=== PATIENT | female | born 1955 | race African-American/Black ===

== ENCOUNTER 2017-10-21 10:18 | Inpatient (IN) | payer OTHER ==
[2017-10-21 10:42] VITALS: BMI 17.6
--- NOTE | 2017-10-21 13:57 | HP ---
CIWA Score - CIWA Score Nausea/Vomitin-No Nausea/No Vomiting Muscle Tremors: 4-Moderate,w/Arms Extend Anxiety: 4-Mod. Anxious/Guarded Agitation: 3 Paroxysmal Sweats: 1-Minimal Palms Moist Orientation: 0-Oriented Tacttile Disturbances: 0-None Auditory Disturbances: 0-None Visual Disturbances: 0-None Headache: 0-None Present CIWA-Ar Total Score: 12 Admission ROS BHS - HPI Chief Complaint: ALCOHOL WITHDRAWAL SX Allergies/Adverse Reactions: Allergies Allergy/AdvReac Type Severity Reaction Status Date / Time egg Allergy Severe Hives Verified 10/21/17 10:43 pork derived (porcine) Allergy Severe Hives Verified 10/21/17 10:43 No Known Drug Allergies Allergy Unknown Verified 10/21/17 14:15 NKDA Allergy Uncoded 10/21/17 10:44 History of Present Illness: 62 Y/O AA/FEMALE WITH A HX OF ALCOHOL,CRACK AND MARIJUANA DEPENDENCE SEEKING DETOX TX. PT REPORTS PREVIOUS TX EPISODES. REPORTS SHE WAS HERE 15 YRS AGO BUT HER MOST RECENT TX WAS 2014. Exam Limitations: No Limitations - Ebola screening Have you traveled outside of the country in the last 21 days: No Have you had contact with anyone from an Ebola affected area: No Have you been sick,other than usual withdrawal symptoms: No Do you have a fever: No - Review of Systems Constitutional: Chills, Loss of Appetite, Unintentional Wgt. Loss (5-10 LBS WT LOSS) EENT: reports: Blurred Vision (WEARS GLASSES), Tinnitus, Dental Problems (IN POOR REPAIR. STATES SHE COMPLETED A COURSE OF ANTIBIOTICS FOR 5 DAYS ON .) Respiratory: reports: No Symptoms reported Cardiac: reports: Lightheadedness GI: reports: Poor Fluid Intake : reports: Frequency Musculoskeletal: reports: Back Pain, Joint Pain, Muscle Pain Integumentary: reports: No Symptoms Reported Neuro: reports: Numbness, Tingling, Tremors, Unsteady Gait, Dizziness Endocrine: reports: No Symptoms Reported Hematology: reports: Anemia (NO CURRENT MEDS) Psychiatric: reports: Orientated x3 Other Systems: Reviewed and Negative Patient History - Patient Medical History Hx Asthma: Yes (as a child) Hx Chronic Obstructive Pulmonary Disease (COPD): No Hx Cardiac Disorders: No Hx Hypertension: Yes (HYDROCHLOROTHIAZIDE IN THE PAST BUT HAS NOT TAKEN SINCE LAST MONTH.) Hx Hypercholesterolemia: Yes (ON MED) HX Cerebrovascular Accident: No Hx Seizures: No Hx Diabetes: No Hx Gastrointestinal Disorders: No Hx Genitourinary Disorders: No Hx Sexually Transmitted Disorders: Yes (gonorrhea and syphilis) Hx Renal Disease (ESRD): No Hx Thyroid Disease: No Hx Human Immunodeficiency Virus (HIV): No (NEGATIVE HX) Hx Hepatitis C: No Hx Depression: No Hx Suicide Attempt: No (DENIES S/I) Hx Schizophrenia: No - Patient Surgical History Past Surgical History: Yes Hx Neurologic Surgery: No Hx Cataract Extraction: No Hx Cardiac Surgery: No Hx Lung Surgery: No Hx Breast Surgery: No Hx Breast Biopsy: No Hx Abdominal Surgery: No Hx Appendectomy: No Hx Cholecystectomy: No Hx Genitourinary Surgery: No Hx Section: No Hx Orthopedic Surgery: Yes (fx, left mandible) Hx Hysterectomy: No Other Surgical History: tubal ligation Anesthesia Reaction: No - PPD History Previous Implant?: Yes Documented Results: Positive w/o proof Results: CXR TBD PPD to be Administered?: No - Reproductive History Patient is a Female of Child Bearing Age (11 -55 yrs old): Yes (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 History Hx Alcohol Use: Yes (BEER) Hx Substance Use: Yes (CRACK/MARIJUANA) Substance Use Type: Alcohol, Cocaine, Marijuana Hx Substance Use Treatment: Yes (LAST TX AT [facility]) - Substances Abused Crack Route: Smoking Frequency: Daily Amount used: $40 Age of first use: 29 Date of Last Use: 10/20/17 Alcohol-beer Route: Oral Frequency: Daily Amount used: 2-3 6 pks. Age of first use: 15 Date of Last Use: 10/20/17 Marijuana Route: Smoking Frequency: Daily Amount used: $10 Age of first use: 15 Date of Last Use: 10/20/17 Family Disease History - Family Disease History Family Disease History: Diabetes: Brother (HTN;HYPERCHOLESTEROLEMIA), CA: Father (BRAIN TUMOR-), Other: Mother (DEMENTIA-) Admission Physical Exam BHS - Vital Signs Vital Signs: Vital Signs - 24 hr 10/21/17 10:40 Temperature 94.7 F L Pulse Rate 42 L Respiratory 18 Rate Blood Pressure 182/97 - Physical General Appearance: Yes: Thin, Irritable, Anxious HEENTM: Yes: EOMI, Normocephalic, SASCHA, Pharynx Normal Respiratory: Yes: Chest Non-Tender, Lungs Clear, Normal Breath Sounds, No Respiratory Distress Breast: Yes: Breast Exam Deferred Cardiology: Yes: Regular Rhythm, S1, S2, Bradycardia Genitourinary: Yes: Other (N/C) Back: Yes: Within Normal Limits Musculoskeletal: Yes: full range of Motion, Gait Steady Extremities: Yes: Normal Range of Motion, Non-Tender Neurological: Yes: hand winder II-XII NML intact, Fully Oriented, Alert, Motor Strength 5/5 Integumentary: Yes: Dry, Warm Lymphatic: Yes: Within Normal Limits - Diagnostic (1) Alcohol dependence with uncomplicated withdrawal Current Visit: Yes Status: Acute (2) Cocaine dependence, uncomplicated Current Visit: Yes Status: Acute (3) Cannabis dependence, uncomplicated Current Visit: Yes Status: Acute (4) Hypertension Current Visit: Yes Status: Chronic Qualifiers: Hypertension type: essential hypertension Qualified Code(s): I10 - Essential (primary) hypertension (5) Hypercholesterolemia Current Visit: Yes Status: Chronic (6) History of anemia Current Visit: Yes Status: Suspected (7) Decreased weight Current Visit: Yes Status: Acute (8) Dry skin Current Visit: Yes Status: Chronic (9) Low vitamin D level Current Visit: Yes Status: Chronic Cleared for Admission [facility] - Detox or Rehab [facility] Level of Care: Medically Managed Detox Regimen/Protocol: Valium (PT PREFERS THE VALIUM) [facility] Breath Alcohol Content Breath Alcohol Content: 0 Urine Pregancy Test - Result Urine Test Results: Negative- NO Line Present Urine Drug Screen - Results Drug Screen Negative: No Urine Drug Screen Results: THC-Marijuana, BRYCE-Cocaine
[2017-10-21] MEDS ORDERED: LOPERAMIDE HCL 2 MG CAPSULE PO PRN (14:10)
[2017-10-21] MEDS ORDERED: NICOTINE POLACRILEX 2 MG GUM BUC PRN (14:10)
[2017-10-21] MEDS ORDERED: MENTHOL/PHENOL 1 EACH UD MM PRN (14:10)
[2017-10-21] MEDS ORDERED: guaiFENesin/D-METHORPHAN HB 10 ML UNIT-DOSE CUPS PO PRN (14:10)
[2017-10-21] MEDS ORDERED: MAG HYDROX/AL HYDROX/SIMETH 30 ML UNIT-DOSE CUP PO PRN (14:10)
[2017-10-21] MEDS ORDERED: P-EPHED 60MG/TRIPROLIDI 2.5MG TABLET PO PRN (14:10)
[2017-10-21] MEDS ORDERED: MAGNESIUM CITRATE 300 ML BOTTLE PO PRN (14:10)
[2017-10-21] MEDS ORDERED: MAGNESIUM HYDROX 2400MG/30ML ORAL SUSPENSION 30 ML CUP PO PRN (14:10)
[2017-10-21] MEDS ORDERED: diazePAM 5 MG TABLET PO PRN (14:10)
[2017-10-21] MEDS ORDERED: IBUPROFEN 400 MG TABLET (FP) PO PRN (14:10)
[2017-10-21] MEDS ORDERED: ACETAMINOPHEN 325 MG TABLET (FP) PO PRN (14:10)
[2017-10-21] MEDS ORDERED: diazePAM 5 MG TABLET PO ONE (14:15)
[2017-10-21] MEDS: CHOLECALCIFEROL (VITAMIN D3) 1,000 UNIT TABLET (FP) PO SCH (15:42)
[2017-10-21] MEDS: HYDROCHLOROTHIAZIDE 25 MG TABLET (FP) PO SCH (15:43)
[2017-10-21] MEDS: diazePAM 5 MG TABLET PO SCH ×2 (15:43→22:19)
--- NOTE | 2017-10-21 16:00 | EKG ---
Test Reason : Blood Pressure : / mmHG Vent. Rate : 041 BPM Atrial Rate : 041 BPM P-R Int : 146 ms QRS Dur : 088 ms QT Int : 510 ms P-R-T Axes : 074 076 065 degrees QTc Int : 420 ms MARKED SINUS BRADYCARDIA MINIMAL VOLTAGE CRITERIA FOR LVH, MAY BE NORMAL VARIANT ANTEROSEPTAL INFARCT , AGE UNDETERMINED ABNORMAL ECG NO PREVIOUS ECGS AVAILABLE Confirmed by Cecilia Lincoln ([id number]) on 10/21/2017 3:59:56 PM Referred By: Confirmed By:Cecilia Lincoln
[2017-10-21 17:56] LABS: URINE APPEARANCE CLEAR; URINE BILIRUBIN NEGATIVE (<2.0 mg/dL); URINE COLOR YELLOW; URINE GLUCOSE (UA) NEGATIVE (NEGATIVE); URINE KETONE NEGATIVE (NEGATIVE); URINE LEUK ESTERASE NEGATIVE (NEGATIVE); URINE NITRITE NEGATIVE (NEGATIVE); URINE PROTEIN NEGATIVE (NEGATIVE); URINE UROBILINOGEN NEGATIVE mg/dL (0.2-1.0)
[2017-10-21] MEDS ORDERED: MELATONIN 5 MG TABLETS PO PRN (22:00)
[2017-10-21] MEDS ORDERED: PATIENT'S OWN MEDICATION (NON-FORMULARY) (Ammonium Lactate Cream 1 APPLIC) TP SCH (22:00)
[2017-10-21] MEDS ORDERED: ARTIFICIAL TEARS (POLYVINYL ALCOHOL) OPTH DROPS OU SCH (22:00)
[2017-10-21] MEDS: MINERAL OIL/PETROLATUM,WHITE 3.5 GM TUBE OU SCH (22:17)
[2017-10-21] MEDS: AMMONIUM LACTATE 12% CREAM 140 GM TUBE TP SCH (22:18)
[2017-10-21] MEDS: KETOCONAZOLE 2% CREAM - 60GM TUBE TP SCH (22:18)
[2017-10-21] MEDS: ATORVASTATIN CA 40 MG TABLET (FP) PO SCH (22:18)
[2017-10-21] MEDS: THIAMINE HCL 100 MG TABLET (FP) PO SCH (22:19)
[2017-10-21] MEDS: TOLNAFTATE 1% POWDER 45 GM POW TP SCH (22:19)
[2017-10-22] MEDS: diazePAM 5 MG TABLET PO SCH ×3 (05:24→23:07)
[2017-10-22] MEDS ORDERED: OMEGA-3 ACID ETHYL ESTERS (FATTY-ACIDS) 1 GM CAPSULE (FP) PO SCH (10:00)
[2017-10-22] MEDS ORDERED: PRENATAL VITAMINS W/ FOLIC ACID TABLET (FP) PO SCH (10:00)
[2017-10-22 10:09] LABS: HEMATOCRIT 38.4 % (32.4-45.2); HEMOGLOBIN 12.6 GM/dL (10.7-15.3); MCH 35.8 pg (25.7-33.7); MCHC 32.9 g/dl (32.0-36.0); MEAN CELL VOLUME 108.8 fl (80-96); PLATELET COUNT 172 K/MM3 (134-434); RBC 3.53 M/mm3 (3.60-5.2); RDW 12.5 % (11.6-15.6); WHITE BLOOD COUNT 5.9 K/mm3 (4.0-10.0)
[2017-10-22 10:21] LABS: CHLORIDE 109 mmol/L (98-107); POTASSIUM 3.9 mmol/L (3.5-5.1); SODIUM 148 mmol/L (136-145)
[2017-10-22 10:38] LABS: ALK PHOS 94 U/L (45-117); ANION GAP 9 MMOL/L (8-16); BILIRUBIN,TOTAL 0.4 mg/dL (0.2-1.0); BLOOD UREA NITROGEN 14 mg/dL (7-18); CALCIUM 9.4 mg/dL (8.5-10.1); CO2 30 mmol/L (21-32); CREATININE 1.1 mg/dL (0.55-1.02); GLUCOSE,RANDOM 106 mg/dL (74-106); SGOT/AST 24 U/L (15-37); SGPT/ALT 43 U/L (12-78); TOT PROT 7.4 g/dl (6.4-8.2)
[2017-10-22] MEDS: CHOLECALCIFEROL (VITAMIN D3) 1,000 UNIT TABLET (FP) PO SCH (10:47)
[2017-10-22] MEDS: HYDROCHLOROTHIAZIDE 25 MG TABLET (FP) PO SCH (10:47)
[2017-10-22] MEDS: AMMONIUM LACTATE 12% CREAM 140 GM TUBE TP SCH ×2 (10:48→23:14)
[2017-10-22] MEDS: TOLNAFTATE 1% POWDER 45 GM POW TP SCH ×2 (10:48→23:15)
[2017-10-22 12:04] LABS: SICKLE CELL SCREEN NEGATIVE (NEGATIVE)
--- NOTE | 2017-10-22 12:07 | PN ---
S CIWA - CIWA Score Nausea/Vomitin Muscle Tremors: 2 Anxiety: 2 Agitation: 2 Paroxysmal Sweats: 3 Orientation: 0-Oriented Tacttile Disturbances: 1-Very Mild Itch/Numbness Auditory Disturbances: 0-None Visual Disturbances: 0-None Headache: 0-None Present CIWA-Ar Total Score: 12 BHS Progress Note (SOAP) Subjective: interrupted sleep, sweats Objective: 10/22/17 12:05 Vital Signs Temperature 98.0 F 10/22/17 11:17 Pulse Rate 58 L 10/22/17 11:17 Respiratory Rate 18 10/22/17 11:17 Blood Pressure 146/76 10/22/17 11:17 O2 Sat by Pulse Oximetry (%) Laboratory Tests 10/21/17 10/22/17 10/22/17 15:41 06:00 06:00 WBC 5.9 RBC 3.53 L Hgb 12.6 Hct 38.4 MCV 108.8 H MCH 35.8 H MCHC 32.9 RDW 12.5 Plt Count 172 MPV 11.0 Sickle Cell Screen Negative Sodium 148 H Potassium 3.9 Chloride 109 H Carbon Dioxide 30 Anion Gap 9 BUN 14 Creatinine 1.1 H Creat Clearance w eGFR 50.50 Random Glucose 106 Calcium 9.4 Total Bilirubin 0.4 AST 24 ALT 43 Alkaline Phosphatase 94 Total Protein 7.4 Albumin 4.0 Urine Color Yellow Urine Appearance Clear Urine pH 5.0 Ur Specific [place] 1.018 Urine Protein Negative Urine Glucose (UA) Negative Urine Ketones Negative Urine Blood Negative Urine Nitrite Negative Urine Bilirubin Negative Urine Urobilinogen Negative Ur Leukocyte Esterase Negative pt aox3 in nad ambulating Assessment: 10/22/17 12:06 withdrawal sx's Plan: cont. detox increase fluids
--- NOTE | 2017-10-22 12:08 | EKG ---
Test Reason : Blood Pressure : / mmHG Vent. Rate : 050 BPM Atrial Rate : 050 BPM P-R Int : 144 ms QRS Dur : 082 ms QT Int : 476 ms P-R-T Axes : 073 069 064 degrees QTc Int : 433 ms SINUS BRADYCARDIA WITH SINUS ARRHYTHMIA POSSIBLE LEFT ATRIAL ENLARGEMENT ANTEROSEPTAL INFARCT (CITED ON OR BEFORE 21-OCT-2017) ABNORMAL ECG WHEN COMPARED WITH ECG OF 21-OCT-2017 15:07, NO SIGNIFICANT CHANGE WAS FOUND Confirmed by DELMI RAY MD ([id number]) on 10/22/2017 12:08:23 PM Referred By: Confirmed By:DELMI RAY MD
[2017-10-22] MEDS: KETOCONAZOLE 2% CREAM - 60GM TUBE TP SCH ×2 (12:34→23:15)
[2017-10-22] MEDS: MINERAL OIL/PETROLATUM,WHITE 3.5 GM TUBE OU SCH (23:07)
[2017-10-22] MEDS: ATORVASTATIN CA 40 MG TABLET (FP) PO SCH (23:09)
[2017-10-22] MEDS: THIAMINE HCL 100 MG TABLET (FP) PO SCH (23:15)
[2017-10-23 06:45] VITALS: PULSE 51
--- NOTE | 2017-10-23 08:55 | DS ---
[facility] Detox Discharge Summary Admission Date: 10/21/17 Discharge Date: 10/23/17 - History Present History: Alcohol Dependence, Cannabis Dependence, Cocaine Dependence Pertinent Past History: HTN, HLD - Physical Exam Results Vital Signs: Vital Signs Temperature 97.3 F L 10/23/17 06:00 Pulse Rate 51 L 10/23/17 06:00 Respiratory Rate 18 10/23/17 06:00 Blood Pressure 152/85 10/23/17 06:00 O2 Sat by Pulse Oximetry (%) Pertinent Admission Physical Exam Findings: Withdrawal sx Laboratory Last Values WBC 5.9 K/mm3 (4.0-10.0) 10/22/17 06:00 RBC 3.53 M/mm3 (3.60-5.2) L 10/22/17 06:00 Hgb 12.6 GM/dL (10.7-15.3) 10/22/17 06:00 Hct 38.4 % (32.4-45.2) 10/22/17 06:00 MCV 108.8 fl (80-96) H 10/22/17 06:00 MCH 35.8 pg (25.7-33.7) H 10/22/17 06:00 MCHC 32.9 g/dl (32.0-36.0) 10/22/17 06:00 RDW 12.5 % (11.6-15.6) 10/22/17 06:00 Plt Count 172 K/MM3 (134-434) 10/22/17 06:00 MPV 11.0 fl (7.5-11.1) 10/22/17 06:00 Sickle Cell Screen Negative (NEGATIVE) 10/22/17 06:00 Sodium 148 mmol/L (136-145) H 10/22/17 06:00 Potassium 3.9 mmol/L (3.5-5.1) 10/22/17 06:00 Chloride 109 mmol/L (98-107) H 10/22/17 06:00 Carbon Dioxide 30 mmol/L (21-32) 10/22/17 06:00 Anion Gap 9 MMOL/L (8-16) 10/22/17 06:00 BUN 14 mg/dL (7-18) 10/22/17 06:00 Creatinine 1.1 mg/dL (0.55-1.02) H 10/22/17 06:00 Creat Clearance w eGFR 50.50 (>60) 10/22/17 06:00 Random Glucose 106 mg/dL (74-106) 10/22/17 06:00 Calcium 9.4 mg/dL (8.5-10.1) 10/22/17 06:00 Total Bilirubin 0.4 mg/dL (0.2-1.0) 10/22/17 06:00 AST 24 U/L (15-37) 10/22/17 06:00 ALT 43 U/L (12-78) 10/22/17 06:00 Alkaline Phosphatase 94 U/L (45-117) 10/22/17 06:00 Total Protein 7.4 g/dl (6.4-8.2) 10/22/17 06:00 Albumin 4.0 g/dl (3.4-5.0) 10/22/17 06:00 Urine Color Yellow 10/21/17 15:41 Urine Appearance Clear 10/21/17 15:41 Urine pH 5.0 (5.0-8.0) 10/21/17 15:41 Ur Specific [place] 1.018 (1.001-1.035) 10/21/17 15:41 Urine Protein Negative (NEGATIVE) 10/21/17 15:41 Urine Glucose (UA) Negative (NEGATIVE) 10/21/17 15:41 Urine Ketones Negative (NEGATIVE) 10/21/17 15:41 Urine Blood Negative (NEGATIVE) 10/21/17 15:41 Urine Nitrite Negative (NEGATIVE) 10/21/17 15:41 Urine Bilirubin Negative (<2.0 mg/dL) 10/21/17 15:41 Urine Urobilinogen Negative mg/dL (0.2-1.0) 10/21/17 15:41 Ur Leukocyte Esterase Negative (NEGATIVE) 10/21/17 15:41 RPR Titer Nonreactive (NONREACTIVE) 10/22/17 06:00 HIV 1&2 Antibody Screen Negative 10/21/17 06:00 HIV P24 Antigen Negative 10/21/17 06:00 Labs noted - Medication Discharge Medications: Ambulatory Orders Ammonium Lactate Cream [Lac-Hydrin 12% *Cream*] 1 applic TP BID 10/21/17 Atorvastatin Ca [Lipitor] 40 mg PO HS 10/21/17 Cholecalciferol (Vitamin D3) [Vitamin D3 -] 2,000 unit PO DAILY 10/21/17 Folic Acid - 1 mg PO DAILY 10/21/17 Hydrochlorothiazide [Hctz -] 25 mg PO DAILY 10/21/17 Ketoconazole 2% Cream [Nizoral 2% Cream -] 1 applic TP BID 10/21/17 Multivitamins [Tab-A-Vit -] 1 tab PO DAILY 10/21/17 [place]-3 Fatty Acids/Fish Oil [Fish Oil 1,000 mg Capsule] 1 each PO DAILY Polyvinyl Alcohol [Artificial Tears] 1 drop OP HS 10/21/17 Thiamine HCl [Vitamin B1] 100 mg PO DAILY 10/21/17 Tolnaftate [Anti-Fungal] 60 gm TP BID 10/21/17 - Diagnosis (1) Alcohol dependence with uncomplicated withdrawal Current Visit: Yes Status: Chronic (2) Cannabis dependence, uncomplicated Current Visit: Yes Status: Chronic (3) Cocaine dependence, uncomplicated Current Visit: Yes Status: Chronic (4) Hypercholesterolemia Current Visit: Yes Status: Chronic (5) Hypertension Current Visit: Yes Status: Chronic Qualifiers: Hypertension type: essential hypertension Qualified Code(s): I10 - Essential (primary) hypertension - AMA Did Patient Leave Against Medical Advice: Yes
[2017-10-23 09:44] VITALS: BP 166/78; TEMP 97.5
[2017-10-23] MEDS ORDERED: diazePAM 5 MG TABLET PO SCH (10:00)
[2017-10-25] MEDS ORDERED: diazePAM 5 MG TABLET PO SCH (10:00)
== END 2017-10-23 09:30 | disposition left against medical advice (07) | DRG 770 ==
LOC: YASAS 10:18 → Y6N 13:54
PROVIDERS: ADMIT Surgery; ATTEND Surgery
PROC: HZ2ZZZZ Detoxification Services for Substance Abuse Treatment (ICD-10-PCS; principal; 2017-10-21)
DX: F10.230 Alcohol dependence with withdrawal, uncomplicated (principal); F14.20 Cocaine dependence, uncomplicated; F12.20 Cannabis dependence, uncomplicated; F17.210 Nicotine dependence, cigarettes, uncomplicated; I10 Essential (primary) hypertension; E78.00 Pure hypercholesterolemia, unspecified; L98.8 Other specified disorders of the skin and subcutaneous tissue; R00.1 Bradycardia, unspecified; Z87.42 Personal history of other diseases of the female genital tract; Z91.012 Allergy to eggs; Z87.898 Personal history of other specified conditions
CPT/HCPCS: 36415; 71046-TC-FY; 80053; 81003; 85027; 85660; 86593; 87389; 93005; 93010

== ENCOUNTER 2024-02-02 12:44 | Inpatient (IN) | payer OTHER ==
[2024-02-02 14:04] VITALS: BMI 16.9
[2024-02-02] MEDS ORDERED: NICOTINE POLACRILEX 2 MG GUM BUC PRN (14:28)
[2024-02-02] MEDS ORDERED: guaiFENesin 600 MG TABLET.ER (FP) PO PRN (14:28)
[2024-02-02] MEDS ORDERED: ACETAMINOPHEN 325 MG TABLET (FP) PO PRN (14:28)
[2024-02-02] MEDS ORDERED: LOPERAMIDE HCL 2 MG CAPSULE PO PRN (14:28)
[2024-02-02] MEDS ORDERED: POLYETHYLENE GLYCOL (HEALTHYLAX) 3350 17 GM PACKET PO PRN (14:28)
[2024-02-02] MEDS ORDERED: NALOXONE (NARCAN) HCL 4 MG/0.1 ML SPRAY NS PRN (14:28)
[2024-02-02] MEDS ORDERED: IBUPROFEN 600 MG TABLET (FP) PO PRN (14:28)
[2024-02-02] MEDS ORDERED: MAG HYDROX/AL HYDROX/SIMETH 30 ML UNIT-DOSE CUP PO PRN (14:28)
[2024-02-02] MEDS ORDERED: hydrOXYzine PAMOATE 25 MG CAPSULE (FP) PO PRN (14:28)
[2024-02-02] MEDS ORDERED: BENZOCAINE/MENTHOL (CHLORASEPTIC ) LOZENGE MM PRN (14:28)
[2024-02-02] MEDS ORDERED: IBUPROFEN 400 MG TABLET (FP) PO PRN (14:28)
[2024-02-02] MEDS ORDERED: BENZONATATE 200 MG CAPSULE PO PRN (14:28)
[2024-02-02] MEDS ORDERED: MAGNESIUM HYDROX 2400MG/30ML ORAL SUSPENSION 30 ML CUP PO PRN (14:28)
[2024-02-02] MEDS ORDERED: NALOXONE (NYS OPIOID OVERDOSE PROGRAM) 4 MG/0.1 ML SPRAY NS PRN (14:28)
[2024-02-02] MEDS: PRENATAL VITAMINS W/ FOLIC ACID TABLET (FP) PO SCH (18:43)
[2024-02-02] MEDS ORDERED: AMMONIUM LACTATE 12% CREAM 140 GM TUBE TP SCH (22:00)
[2024-02-02] MEDS: KETOCONAZOLE 2% CREAM - 60GM TUBE TP SCH (22:40)
[2024-02-02] MEDS: ATORVASTATIN CA 40 MG TABLET (FP) PO SCH (22:40)
[2024-02-02] MEDS: MELATONIN 5 MG TABLETS PO SCH (22:40)
[2024-02-02] MEDS: TOLNAFTATE 1% POWDER 45 GM POW TP SCH (22:41)
[2024-02-02] MEDS: THIAMINE 100 MG TABLET PO SCH (22:41)
[2024-02-02] MEDS: AMMONIUM LACTATE 12% LOTION 225 GM BOTTLE TP PRN (22:41)
[2024-02-02] MEDS: ARTIFICIAL TEARS OPHTHALMIC DROPS OU SCH (22:51)
[2024-02-03] MEDS: CHOLECALCIFEROL (VIT D3) 1,000 UNIT (25 MCG) TABLET PO SCH (09:53)
[2024-02-03] MEDS: HYDROCHLOROTHIAZIDE 25 MG TABLET (FP) PO SCH (09:53)
[2024-02-03 11:26] LABS: HEMATOCRIT 38.6 % (32.4-45.2); HEMOGLOBIN 12.2 GM/dL (10.7-15.3); MCH 35.1 pg (25.7-33.7); MCHC 31.6 g/dl (32.0-36.0); MEAN PLT VOLUME 10.1 fl (7.5-11.1); PLATELET COUNT 166 10^3/uL (134-434); RBC 3.47 M/mm3 (3.60-5.2); RDW 12.6 % (11.6-15.6); WHITE BLOOD COUNT 4.9 K/mm3 (4.0-10.0)
[2024-02-03 11:32] LABS: EPI CELLS 6 /uL (0-25.1); HYALINE CASTS 1 /uL (0-3.1); PH,URINE 5.5 (5.0-8.0); URINE BACTERIA 94 /uL (0-1359); URINE BILIRUBIN NEGATIVE (NEGATIVE); URINE COLOR YELLOW; URINE GLUCOSE (UA) NEGATIVE (NEGATIVE); URINE KETONE TRACE (NEGATIVE); URINE LEUK ESTERASE TRACE (NEGATIVE); URINE NITRITE NEGATIVE (NEGATIVE); URINE PROTEIN NEGATIVE (NEGATIVE); URINE RBC 45 /uL (0-23.9); URINE WBC 26 /uL (0-25.8)
[2024-02-03 12:09] LABS: POTASSIUM 4.7 mmol/L (3.5-5.1)
[2024-02-03 12:11] LABS: ALBUMIN 3.2 g/dl (3.4-5.0); CALCIUM 9.3 mg/dL (8.5-10.1)
[2024-02-03 12:12] LABS: BLOOD UREA NITROGEN 28.8 mg/dL (7-18)
[2024-02-03 12:15] LABS: CREATININE 1.3 mg/dL (0.55-1.3)
[2024-02-03 12:16] LABS: BILIRUBIN,TOTAL 0.5 mg/dL (0.2-1); TOT PROT 6.2 g/dl (6.4-8.2)
[2024-02-03 14:35] LABS: SYPHILIS W/ RPR CONF REACTIVE (NONREACTIVE)
[2024-02-03 15:51] LABS: URINE APPEARANCE CLEAR
[2024-02-04] MEDS ORDERED: PRENATAL VITAMINS W/ FOLIC ACID TABLET (FP) PO PRN (08:24)
[2024-02-04] MEDS: PRENATAL VITAMINS W/ FOLIC ACID TABLET (FP) PO PRN (10:00)
[2024-02-10] MEDS ORDERED: diphenhydrAMINE HCL 25 MG CAPSULE (FP) PO PRN (08:09)
[2024-02-10] MEDS ORDERED: diphenhydrAMINE HCL 25 MG CAPSULE (FP) PO ONE (08:12)
[2024-02-10] MEDS: diphenhydrAMINE HCL 50 MG CAPSULE PO ONE (08:14)
[2024-02-17 07:00] VITALS: RESP 16
[2024-02-17] MEDS ORDERED: VITAMINS A AND D TOPICAL OINTMENT TP PRN (15:48)
[2024-02-17] MEDS: BACLOFEN 10 MG TABLET (FP) PO SCH (21:15)
[2024-02-18 07:32] VITALS: BP 116/62; PULSE 71; TEMP 97.1
[2024-02-18] MEDS: amLODIPine BESYLATE 5 MG TABLET (FP) PO SCH (10:02)
[2024-02-18] MEDS: NALOXONE (NYS OPIOID OVERDOSE PROGRAM) 4 MG/0.1 ML SPRAY NS SCH (10:33)
== END 2024-02-18 10:45 | disposition home or self-care (01) | DRG 895 ==
LOC: YASAS 12:44 → Y3NR 17:00 → Y5N 02-03 12:09
PROVIDERS: ADMIT Psychiatry & Neurology Pain Medicine; ATTEND Psychiatry & Neurology Pain Medicine
PROC: HZ42ZZZ Group Counseling for Substance Abuse Treatment, Cognitive-Behavioral (ICD-10-PCS; principal; 2024-02-02)
DX: F14.20 Cocaine dependence, uncomplicated (principal); Z68.1 Body mass index [BMI] 19.9 or less, adult; Z59.01 Sheltered homelessness; F12.20 Cannabis dependence, uncomplicated; F10.10 Alcohol abuse, uncomplicated; F11.10 Opioid abuse, uncomplicated; F17.210 Nicotine dependence, cigarettes, uncomplicated; E78.00 Pure hypercholesterolemia, unspecified; E55.9 Vitamin D deficiency, unspecified; L85.3 Xerosis cutis; L21.9 Seborrheic dermatitis, unspecified; B35.3 Tinea pedis; R63.4 Abnormal weight loss
CPT/HCPCS: 36415; 71046-TC-FY; 80053; 80305; 81003; 82962; 85027; 86593; 86780; 86803; 87811; 93005; 93010; J0475